=== PATIENT | female | born 1975 | race Asian ===

== ENCOUNTER 2016-08-09 07:30 | Day surgery (SDC) | payer BC ==
[2016-08-08 14:51] VITALS: BMI 32.3
[2016-08-09 08:03] LABS: BASOPHIL 0.6 % (0-2.0); MCHC 33.1 g/dl (32.0-36.0); MEAN CELL VOLUME 96.7 fl (80-96); MEAN PLT VOLUME 7.7 fl (7.5-11.1); NEUTROPHILS 69.1 % (42.8-82.8); PLATELET COUNT 210 K/MM3 (134-434); RDW 14.1 % (11.6-15.6); WHITE BLOOD COUNT 5.5 K/mm3 (4.0-10.0)
[2016-08-09 08:24] LABS: INR 1.02 (0.82-1.09); PROTHROMBIN TIME (PATIENT) 11.2 SEC (9.98-11.88)
[2016-08-09 12:49] VITALS: TEMP 97.8
[2016-08-09 16:46] VITALS: BP 100/68; PULSE 78
--- NOTE | 2016-08-14 07:59 | PATH ---
Surgical Pathology Report Patient Name: MIRZA YANCEY [facility]. Rec. #: [id number] /Age/Gender: 1975 (Age: 41) / F Account: [id number] Location: RADIOLOGY Taken: 08/09/2016 Received: 08/09/2016 Reported: 08/14/2016 Physicians: Sam Curiel M.D. Specimen(s) Received LIVER BIOPSY Clinical History 41 yo female with lupus and elevated LFTs Final Diagnosis LIVER, US GUIDED CORE BIOPSY: STEATOSIS (~35-40%) AND MILDLY ACTIVE STEATOHEPATITIS. MILD PORTAL, FOCAL PERIPORTAL AND FOCAL PERIVENULAR FIBROSIS (STAGE I-II/IV). NO PROMINENT FEATURES OF PREVIOUSLY SEEN SEVERELY ACTIVE IMMUNE-MEDIATED HEPATITIS IDENTIFIED. SEE COMMENT. Comment: The liver architecture is preserved. The portal areas shows mild patchy inflammation comprised of lymphocytes and histiocytes. Only rare plasma cells are present. No significant interface activity is identified. No significant bile duct injury or ductular reaction is present, mild periductal fibrosis is seen. No portal granulomas are seen. The lobular show patchy inflammatory activity comprised of lymphocytes and neutrophils. Rare acidophil bodies are seen. No significant hepatocyte ballooning is noted. No definite Melvi hyalin is identified. No lobular granulomas are seen. No cholestasis is noted. There is predominantly macrovesicular steatosis, present on approximately 35-40% of the biopsy material. The trichrome stain highlights mild portal, focal periportal and focal perivenular fibrosis. Iron stain shows no siderosis. 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 The current biopsy shows steatosis and mildly active steatohepatitis with mild portal, focal periportal and focal perivenular fibrosis. In comparison to the previous sample, characteristic features of immune-mediated hepatitis, such as significant increase in plasma cells and marked interface activity/piecemeal necrosis, are not seen in the current biopsy. The etiology of steatosis and steatohepatitis include alcohol and non-alcohol induced liver injuries, such as drugs/toxins and metabolic conditions. Serological correlations and follow up are suggested. The case was discussed with Dr. Wills on 08/13/16. Electronically Signed Michael Cueva M.D. Gross Description Received in formalin labeled "liver biopsy" are 3 francois, cylindrical portions of soft tissue ranging from 1.2-1.4 cm in length and averaging 0.1 cm diameter. The specimens are submitted in toto in one cassette. 08/09/201608/09/2016
== END 2016-08-09 15:30 | disposition home or self-care (01) ==
LOC: JRADIR 07:30
PROVIDERS: ATTEND Radiology Diagnostic Radiology
PROC: BF45ZZZ Ultrasonography of Liver (ICD-10-PCS; principal; 2016-08-09)
PROC: 0FB13ZX Excision of Right Lobe Liver, Percutaneous Approach, Diagnostic (ICD-10-PCS; 2016-08-09)
DX: R94.5 Abnormal results of liver function studies (principal); M32.9 Systemic lupus erythematosus, unspecified
CPT/HCPCS: 36415; 76705-TC; 76942-TC; 84703; 85025; 85610; 87899; 88307-TC; 88313-TC